=== PATIENT | male | born 1970 | race Two or more races ===

== ENCOUNTER 2023-10-02 02:46 | Emergency (ER) | payer SELFPAY ==
[2023-10-02 02:49] VITALS: BP 192/97
--- NOTE | 2023-10-02 03:18 | ED.GENMED ---
History of Present Illness
General
Chief Complaint: Abdominal Symptoms
Source: patient
Time Seen by Provider: 10/02/23 03:07
Travel History
Have you had any contact with someone who has COVID-19?: No
Do you have any symptoms of coronavirus? Fever > 100 degrees, chills, cough, shortness of breath, sore throat, loss of taste or smell, muscle aches, or headache?: No
History of Present Illness
History of Present Illness:
53-year-old male presents to the emergency room complaining of inability to urinate normally. Patient states he has not urinated for the past 4 hours but feels the urge to urinate. Prior to that he was passing urine but in a very slow trickle at
times. Patient is also experiencing constipation. He has been unable to have a bowel movement for the past 2 days despite using MiraLAX today. Patient has significant pressure in his lower abdomen. He denies any nausea or vomiting. He denies
any fever. Patient is unaware of any prostate issues.
Phy Exam
Physical Exam
Physical Exam:
General: Awake, Alert, Oriented X3. Appears uncomfortable
Vitals: unremarkable
Head: Atraumatic
Eyes: Pupils equal, EOMI
Throat: Airway intact, no exudates
Neck: Trachea midline
Lungs: Clear and equal b/l
Heart: Regular rate, no murmurs
Abd: Soft, suprapubic fullness with a palpable bladder that is uncomfortable to palpation, No pulsatile mass
Neuro: Nonfocal
Skin: Warm, dry, no rash
Extremities: pulses equal b/l, no edema
Course
Orders/Labs/Results
Orders:
Orders
10/02/23 03:17
Henson Placement- Treatment ONCE
Reason for insertion: Acute Retention
Lidocaine 2% [Lidocaine Uro-Jet 2%] 1 syringe TOPICAL NOW STA
Tamsulosin [Flomax] 0.4 mg PO NOW STA
10/02/23 04:00
Basic Metabolic Panel Urgent
Complete Blood Count/With Diff Urgent
Urinalysis Reflex To Culture Urgent
Date Specimen was Collected: 10/02/23
Time Specimen was Collected: 03:54
10/02/23 04:48
Lactulose [Duphalac/Chronulac] 20 grams PO NOW STA
Abnormal Lab Results
10/02/23
04:00
WBC 11.3 H 10^3/uL
(4.8-10.8)
RBC 4.47 L 10^6/uL
(4.70-6.10)
MCH 32.0 H pg
(27.0-31.0)
MPV 10.5 H fL
(7.4-10.4)
Absolute Neuts (auto) 8.9 H 10^3/uL
(1.4-6.5)
Absolute Monos (auto) 0.9 H 10^3/uL
(0.1-0.6)
Neutrophils % 78.3 H %
(42.2-75.2)
Lymphocytes % 13.2 L %
(20.5-51.1)
Glucose 132 H mg/dl
(70-99)
Urine Ketones Trace A
(Negative)
10/02/23 04:00
10/02/23 04:00
Vital Signs
Initial and Last Documented VS:
Initial Vital Signs
Temp Pulse Resp BP Pulse Ox
98.8 F 63 16 192/97 96
10/02/23 02:49 10/02/23 02:49 10/02/23 02:49 10/02/23 02:49 10/02/23 02:49
Last Documented Vital Signs
Temp Pulse Resp BP Pulse Ox
98.8 F 58 16 173/82 97
10/02/23 02:49 10/02/23 05:05 10/02/23 05:05 10/02/23 05:05 10/02/23 05:05
MDM/Problems Addressed
Differential Diagnosis Includes:
Urinary retention, renal failure, mass, constipation
MDM/Problems Addressed:
Patient noted to have extremely large bladder on exam. Henson catheter was placed and 1200 mL of urine was obtained. Henson will be left in. Will start the patient on Flomax. He can follow-up with urology to have the Henson removed. I suspect his
constipation will improve now that his bladder has been decompressed. No evidence of infection on urinalysis.
*Pulse Oximetry
Patient hypoxic: no
*Critical Care Note
Total Time (30-74mins, 75-104mins- exclusive of procedures): Not Applicable
ED Attending Note
-
Portions of this chart may have been created with voice recognition software.� Occasional wrong word or��sound alike� substitutions may have occurred due to the inherent limitations of voice recognition software.
Discharge Plan
Departure
Patient Disposition: Home (Routine Discharge)
Date of Disposition: 10/02/23
Time of Disposition: 04:38
Patient with high blood pressure during this ER visit?: Yes
Condition: Good
Discharge Problem:
Acute urinary retention
Instructions: How to Care for Your Henson Catheter, Male, Urinary Retention (DC), BLOOD PRESSURE
Prescriptions:
New
tamsulosin [Flomax] 0.4 mg capsule
0.4 mg PO DAILY Qty: 30 0RF
Referrals:
NONE,* [Family Provider] -
Marin Mari MD [Active] -
Activity Restrictions/Additional Instructions:
Please call the urology office to make an appointment. You should leave the catheter in until you see the urologist. Take Flomax once a day.
Interventions
Interventions:
*Risk Screen - Suicide Last Done: 10/02/23 02:49
*General Assessment Last Done: 10/02/23 02:49
*Neglect/Abuse Screening Last Done: 10/02/23 02:49
ED- Fall Risk Assessment Last Done: 10/02/23 04:07
*ED COVID-19 Vaccine History Last Done: 10/02/23 04:07
*Nursing Disposition Last Done: 10/02/23 05:08
[facility] Assessment Last Done: 10/02/23 04:07
Discharge Date and Time
Discharge Date/Time: 10/02/23 05:09
Print Language: VINCENTIAN
[2023-10-02] MEDS: LIDOCAINE URO-JET 2% 1 SYRINGE TOPICAL (03:39)
[2023-10-02] MEDS: FLOMAX 0.400000000000000022 MG PO (03:39)
[2023-10-02 04:02] VITALS: BMI 30.1
[2023-10-02 04:23] LABS: Urine Albumin Negative (Neg - Trace); Urine Bilirubin Negative (Negative); Urine Character Clear (Clear); Urine Color Yellow; Urine Glucose Negative (Negative); Urine Ketone Trace (Negative); Urine Leukocyte Negative (Negative); Urine Nitrite Negative (Negative); Urine Occult Blood Negative (Negative); Urine Urobilinogen Negative (Neg - 1+)
[2023-10-02 04:24] LABS: % Basophils 0.4 % (0-2); % Eosinophils 0.2 % (0-6); % Immature Granulocytes 0.4 % (0-0.5); % Lymphocytes 13.2 % (20.5-51.1); % Monocytes 7.5 % (1.7-9.3); % Neutrophils 78.3 % (42.2-75.2); Absolute Basophils 0.1 10^3/uL (0-0.2); Absolute Lymphocytes 1.5 10^3/uL (1.2-3.4); Absolute Monocytes 0.9 10^3/uL (0.1-0.6); Absolute Neutrophils 8.9 10^3/uL (1.4-6.5); Hematocrit 40.3 % (39.0-52.0); Hemoglobin 14.3 g/dL (13.0-18.0); Mean Corp Hgb Conc. 35.5 g/dL (33.0-37.0); Mean Corpuscular Volume 90.2 fL (80.0-94.0); Mean Platelet Volume 10.5 fL (7.4-10.4); Nucleated Red Blood Cells % 0 % (-); Platelet Count 176 10^3/uL (130-400); Red Blood Cell Count 4.47 10^6/uL (4.70-6.10); Red Cell Dist. Width 12.7 % (11.5-14.5); White Blood Cell Count 11.3 10^3/uL (4.8-10.8)
[2023-10-02 04:31] LABS: Blood Urea Nitrogen 14 mg/dl (9-20); Calcium 9.4 mg/dl (8.4-10.2); Carbon Dioxide 24 mmol/L (22-30); Chloride 104 mmol/L (98-107); Estimated Creatinine Clearance 113 ml/min; Glucose 132 mg/dl (70-99); Sodium 136 mmol/L (135-145); eGFR > 60.00
[2023-10-02] MEDS: DUPHALAC/CHRONULAC 20 GRAMS PO (05:03)
[2023-10-02 05:05] VITALS: BP 173/82
== END 2023-10-02 05:09 | disposition home or self-care (01) ==
LOC: EMR 02:46
PROVIDERS: EMERGENCY PHYSICIAN Emergency Medicine
DX: R33.9 Retention of urine, unspecified (principal)
CPT/HCPCS: 99283; 51702; 80048; 81003; 85025